=== PATIENT | female | born 1940 | race Caucasian/White ===

== ENCOUNTER 2023-12-23 06:14 | Day surgery (SDC) | payer MEDICARE, BC, SELFPAY ==
--- NOTE | 2023-11-20 09:00 | CM ---
Patient is scheduled for an elective R THR on 12/23/23- she is a same day patient. Spoke with patient prior to surgery. Introduced role of Orthopedic Navigator. Patient reports that she lives alone in a one floor apartment. There are no steps to
enter. She currently functions independently and occasionally uses a rollator. She also has a hurry cane and hip kit. She plans to borrow a rolling walker, raised toilet seat and shower seat. She has had VN services. PCP is Sylvain Fuentes.
Discussed orthopedic program and post surgical plans. Reviewed that she will have VN services initially (medicare.gov website and ratings reviewed) and will then start outpatient PT. Patient selects [facility] (face sheet faxed to [facility] to facilitate
confirmation of benefits) for her home care needs and will go to [facility] for outpatient PT.
Patient is in agreement with plan and states that her son will stay with her at least her for at least the first night home then her sister will be available to provide support.
Patient will complete online education.
Plan: Orthopedic Navigator will remain available to assist with the care of patient and will reassess discharge needs after surgery.
[2023-12-04 10:29] VITALS: BMI 24.9
[2023-12-04 10:53] LABS: Hematocrit 42.8 % (37.0-47.0); Hemoglobin 14.6 g/dL (12.0-16.0); Mean Corp Hgb Conc. 34.1 g/dL (33.0-37.0); Mean Corpuscular Volume 84.9 fL (81.0-99.0); Mean Platelet Volume 10.1 fL (7.4-10.4); Platelet Count 222 10^3/uL (130-400); Red Blood Cell Count 5.04 10^6/uL (4.20-5.40); Red Cell Dist. Width 12.8 % (11.5-14.5); White Blood Cell Count 6.1 10^3/uL (4.8-10.8)
[2023-12-04 12:29] LABS: ALT (SGPT) 27 U/L (0-35); AST (SGOT) 31 U/L (14-36); Albumin 4.3 g/dl (3.5-5.0); Alkaline Phosphatase 80 U/L (38-126); Blood Urea Nitrogen 20 mg/dl (7-17); Calcium 10.1 mg/dl (8.4-10.2); Carbon Dioxide 27 mmol/L (22-30); Chloride 105 mmol/L (98-107); Estimated Creatinine Clearance 40 ml/min; Glucose 95 mg/dl (70-99); Potassium 4.6 mmol/L (3.5-5.1); Sodium 137 mmol/L (135-145); eGFR > 60.00
[2023-12-04 13:21] LABS: Glycohemoglobin (HgbA1c) 5.6 % (4.0-5.6)
[2023-12-04 15:28] VITALS: BMI 24.9
[2023-12-23] VITALS (13 sets, daily range): BP systolic 126–169; BP diastolic 47–89; PULSE 80; O2SAT 99
[2023-12-23] MEDS: NORMOSOL-R 1000 IV (07:15)
[2023-12-23] MEDS: CELEBREX 200 MG PO (07:28)
[2023-12-23] MEDS: TYLENOL 650 MG PO (07:28)
--- NOTE | 2023-12-23 08:31 | CM ---
Patient is here for planned R THR. Met with patient and her son at bedside to review discharge plans. Patient will be returning home today with services through [facility]. On , 12/26, patient will start outpatient PT with [facility] (they will see
her in her apartment initially). Reviewed MD follow up in two weeks and patient has already scheduled her appointment.
Patient has her rolling walker here with her.
PT and [facility] will be kept updated as to progress and discharge plans.
[2023-12-23] MEDS: ANCEF 5 IV (11:59)
== END 2023-12-23 12:20 | disposition home health service (06) ==
LOC: SDS 06:14
PROVIDERS: ATTENDING PHYSICIAN Specialist; FAMILY PHYSICIAN Internal Medicine; OTHER PHYSICIAN Internal Medicine; OTHER PHYSICIAN Physician Assistant
DX: M16.11 Unilateral primary osteoarthritis, right hip (principal)
CPT/HCPCS: 27130; C1776; 36415; 73502; 80053; 83036; 85027; 87070; 97116; 97161; C1713

== ENCOUNTER 2024-09-18 23:06 | Emergency (ER) | payer MEDICARE, BC, SELFPAY ==
[2024-09-18 23:21] VITALS: BP 175/94
[2024-09-19] VITALS (7 sets, daily range): BP systolic 142–184; BP diastolic 61–91; PULSE 76–94; BMI 23.6
--- NOTE | 2024-09-19 01:27 | ED.GENMED ---
History of Present Illness
General
Chief Complaint: Fall
Source: patient
Exam Limitations: none
Time Seen by Provider: 09/19/24 00:38
History of Present Illness
History of Present Illness:
This is a 83 year old female that comes in with c/o fall and syncope. States that there was a silver fish bug in her living room. States that she was beating this but as it just kept jumping and she must have passed out. States that her Cousin
called her around 9:30pm wondering where she was as she normally puts drops in her eyes for her. States that she must have passed out as she doesn't remember what happened. States that she hit the TV stand and broke her glasses. Family states that
she has had indigestion and was belching all the away here. States that she was also repeating herself and would ask them what happened and when they had told her she would then ask the same questions again. Patient Denies any fever, chills, chest
pain, SOB, abd pain, nausea, vomiting, diarrhea, headache, dizziness, urinary burning.
Past History
Past History
ED Past Medical History: HTN, Hypercholesterolemia, Hypothyroidism, Psychiatric (Anxiety) and Other (LBBB, Retinal detachment)
ED Past Surgical History: Gynecological (D&C) and Orthopedic (Right Humerus ORIF, right hip replacement)
Social History
Tobacco: Non-smoker
Alcohol: None
Personal:
Living: alone
Review of Systems
Review of Systems
All Other Systems: ROS reviewed and negative except as documented in HPI and ROS
Constitutional: Reports no symptoms; Denies fever or chills
EENT: Reports no symptoms
Respiratory: Reports no symptoms; Denies cough or trouble breathing
Cardiac: Reports no symptoms; Denies chest pain
ABD/GI: Reports no symptoms; Denies abdominal pain, nausea, vomiting or diarrhea
: Denies dysuria, frequency or urgency
Musculoskeletal: Reports no symptoms
Skin: Reports no symptoms
Neurological: Denies dizzy or headache
Psychiatric: Reports no symptoms
Phy Exam
General Physical Exam
General Presentation: no apparent distress
General age: appears stated age
General Skin: warm and dry
General Habitus: elderly
General Mental: alert
General Hydration: dry mucous membranes
ENT Exam
ENT Exam: TM's normal, pharynx normal and neck supple
Eye Exam
Eye Exam: EOMI
Cardiovascular Exam
Cardiovascular Exam: regular rate/rhythm, no edema and normal peripheral pulses
Pulmonary Exam
Pulmonary Exam: lungs clear, no respiratory distress, no rales, chest non tender, no crackles, no rhonchi, no wheezing and no cough
Gastrointestinal Exam
Gastrointestinal Exam: normal bowel sounds, non tender, soft, no organomegaly, no pulsatile mass and non distended
NIH Stroke Score
Level of Consciousness: 0 - Alert
LOC questions: 0-Answers both correctly
LOC Commands: 0-Performs both correctly
Best Gaze: 0-Normal
Visual Schrader: 0=Normal, no visual loss
Facial palsy: 0=Normal, symmetrical
Motor - Right Arm: 0=No drift 10 seconds
Motor - Left Arm: 0=No drift 10 seconds
Motor - Right Le-No drift 5 seconds
Motor - Left Le-No drift 5 seconds
Limb Ataxia: 0-Absent
Sensation: 0-Normal
Best Language: 0-No aphasia
Dysarthria: 0-Normal
Extinction and Inattention: 0-No abnormality
Total Score:: 0
Musculoskeletal Exam
Musculoskeletal Exam: full ROM, no edema and other (Negative for any cervical neck, spinal or shoulder tenderness. Negative rib tenderness with palpation. Negative for discomfort with flexion of the knee's, inversion or eversion. )
Skin Exam
Skin Exam: normal color, warm/dry, no petechia and other (Contusion noted over the left eye and around the lateral aspect of the eye with small superficial abrasion noted just above the eye brow. )
Psychiatric Exam
Psychiatric Exam: normal mood/affect
Course
Orders/Labs/Results
Orders:
Orders
09/19/24 00:06
CT Head W/o Iv Contrast Urgent
Comment: no blood thinners
Reason For Exam: fell, struck left rastafari, + LOC
09/19/24 01:07
Electrocardiogram (*1) Urgent
Reason for Study: Syncope
EKG- Treatment ONCE
Orthostatic VS- Treatment ONCE
0.9% Sodium Chloride 500 ml [Nss] 500 ml IV BOLUS
09/19/24 01:32
Complete Blood Count/With Diff Urgent
Comprehensive Metabolic Panel Urgent
Troponin I Urgent
09/19/24 02:28
CT Cervical Spine W/o Iv Contr Urgent
Comment:
Reason For Exam: Fall, Subdural hematom
09/19/24 03:03
Urinalysis Reflex To Culture Urgent
Date Specimen was Collected: 09/19/24
Time Specimen was Collected: 02:29
Urine Microscopic Reflex Cult Urgent
Urine Culture Urgent
CARLOS Source: U
Specimen Description:
Date Specimen was Collected: 09/19/24
Time Specimen was Collected: 02:29
Abnormal Lab Results
09/19/24 09/19/24
01:32 03:03
WBC 11.1 H 10^3/uL
(4.8-10.8)
Abs Immat Gran (auto) 0.1 H 10^3/uL
(0-0.05)
Absolute Neuts (auto) 9.2 H 10^3/uL
(1.4-6.5)
Neutrophils % 82.5 H %
(42.2-75.2)
Lymphocytes % 11.2 L %
(20.5-51.1)
BUN 20 H mg/dl
(7-17)
Glucose 145 H mg/dl
(70-99)
Calcium 10.4 H mg/dl
(8.4-10.2)
AST 37 H U/L
(14-36)
Leukocyte Esterase Rfl 1+ A
(Negative)
09/19/24 01:32
09/19/24 01:32
WBC very slighty elevated. Dehydration. Glucose nonfasting. Calcium slightly elevated. Troponin <0.012
Vital Signs
Initial and Last Documented VS:
Initial Vital Signs
Temp Pulse Resp BP Pulse Ox
98.5 F 85 16 175/94 97
09/18/24 23:21 09/18/24 23:21 09/18/24 23:21 09/18/24 23:21 09/18/24 23:21
Last Documented Vital Signs
Temp Pulse Resp BP Pulse Ox
98.5 F 80 16 146/74 96
09/18/24 23:21 09/19/24 02:28 09/18/24 23:21 09/19/24 03:02 09/19/24 03:02
MDM/Problems Addressed
Differential Diagnosis Includes:
Syncope, Contusion. Coronary event,
MDM/Problems Addressed:
This is a 83 year old female that comes in with c/o fall. States that she was trying to kill a bug and she must have passed out as she hit the TV stand and broke her glasses. States that she doesn't remember this.
Will check labs. CT head, Urine. Orthostatic, and given IV fluids
Spoke with Dr. Stephanie Edwards for Neurosurgery at [facility]. Suggested that we transfer patient to them. Spoke with Physician there and awaiting to see if they have a bed.
Back into see patient and Son. Explained that the CT shows that she has a subdural hematoma. Will need to transfer patient to [facility]. Patient has signed consent for Transfer.
Patient will be transfered to the ER at [facility]. Dr. Erwin is the excepting physician.
Chronic conditions affecting care:
NA
Acute Exacerbation and/or Progression of Chronic Illness:
NA
*Radiology
Radiology exam reviewed: radiology read reviewed (CT head Night hawk-Subcutaneous edema over the left forrhad/periorbital region. There is a right sudural hematoma along the frontoparietal lobe Measuring 4mm in thickness. No significant mass effect.
CT cervical spine- NO fractures. Mild retrolisthesis C4-5. This probably related to degenerative ) and other (CT cont- changes, assuming no signs and symptoms of ligamentous instability. Paraspinous soft tissues are unremarkable. )
*Pulse Oximetry
Patient hypoxic: no
*EKG
Interpreted by ED Provider?: Yes
Heart Rate: 76
Rate: normal
Rhythm: sinus
[place]: left axis deviation
Interval: normal interval
QRS Pattern: left bundle branch block
Ischemia: no ischemia
*Critical Care Note
Total Time (30-74mins, 75-104mins- exclusive of procedures): Not Applicable
ED Attending Note
-
Portions of this chart may have been created with voice recognition software.� Occasional wrong word or��sound alike� substitutions may have occurred due to the inherent limitations of voice recognition software.
Discharge Plan
Departure
Patient Disposition: [facility]
Date of Disposition: 09/19/24
Time of Disposition: 03:16
Patient with high blood pressure during this ER visit?: Yes
Condition: Good
Covid-19: Not Applicable
Discharge Problem:
Acute subdural hematoma
Prescriptions:
No Action
pravastatin 40 mg Tablet
40 mg PO NOON
lorazepam 0.5 mg Tablet
0.5 mg PO HS
levothyroxine 50 mcg Tablet
50 mcg PO DAILY
ergocalciferol (vitamin D2) [Vitamin D2] 1,250 mcg (50,000 unit) Capsule
1,250 mcg PO DUBOIS
fluticasone propionate 50 mcg/actuation [place],Suspension
1 spray INTRANASAL DAILY PRN (Reason: ALLERGIES)
Systane (PF) 0.4-0.3 % Drop[place]rette
1 drp OPHTHALMIC (EYE) BID
hydrocodone-acetaminophen 5-325 mg tablet
1 - 2 tab PO Q6H PRN (Reason: moderate-severe pain) Qty: 30 0RF
Rx Instructions:
1 tab for moderate pain, 2 if severe.
Dx total joint.
celecoxib [Celebrex] 200 mg capsule
200 mg PO DAILY Qty: 14 0RF
Rx Instructions:
Take with food.
DO NOT take within 2 hours of Aspirin post-surgery.
dexamethasone 4 mg tablet
4 mg PO BID Qty: 7 0RF
Rx Instructions:
Start night of discharge and continue twice a day for 3 days post-surgery.
ondansetron HCl 4 mg tablet
4 mg PO Q6H PRN (Reason: nausea and vomiting) Qty: 30 0RF
famotidine [Pepcid] 20 mg tablet
20 mg PO HS Qty: 30 0RF
Rx Instructions:
Take nightly while on Celebrex and Aspirin to prevent GI upset.
mupirocin 2 % ointment
1 applic intranasal BID Qty: 1 0RF
Patient Comments:
Patient administered this medication today 12/23/23 @ 05:00. Patient started administering this medication on 12/21/23 in the morning.
acetaminophen 325 mg capsule
650 mg PO Q4H PRN (Reason: mild pain) Qty: 60 0RF
Rx Instructions:
DO NOT exceed >4000 mg daily while on Wing (Hydrocodone-Acetaminophen).
1 Wing tab = 325 mg of Tylenol.
aspirin 325 mg tablet
325 mg PO DAILY Qty: 30 0RF
Rx Instructions:
Take daily x4 weeks for blood clot prevention.
docusate sodium [Colace] 100 mg capsule
100 mg PO BID Qty: 30 0RF
sennosides [senna] 8.6 mg tablet
17.2 mg PO BID Qty: 30 0RF
lorazepam 0.5 mg Tablet
0.5 mg PO DAILYPRN PRN (Reason: ANXIETY) Qty: 0 0RF
Rx Instructions:
Caution with Hydrocodone - can cause drowsiness.
Use extra dose sparingly.
irbesartan 150 mg Tablet
150 mg PO HS Qty: 0 0RF
Rx Instructions:
HOLD IF systolic blood pressure <130 while on Hydrocodone-Acetaminophen.
Referrals:
Sylvain Fuentes MD [Family Provider] -
Hospital Transfer
Other hospital: [facility]
I certify that the patient requires transfer: Yes
Discussed case with accepting physician: DR. Erwin
Reason for transfer: higher level of care and specialties available
Interventions
Interventions:
*Risk Screen - Suicide Last Done: 09/18/24 23:08
*General Assessment Last Done: 09/18/24 23:11
*Neglect/Abuse Screening Last Done: 09/18/24 23:12
*ED COVID-19 Vaccine History Last Done: 09/18/24 23:13
ED-Musculoskeletal Assessment Last Done: 09/19/24 03:14
ED- Neurological Assessment Last Done: 09/19/24 03:14
ED-Skin Assessment Last Done: 09/19/24 03:14
Discharge Date and Time
Print Language: UKRAINIAN
[2024-09-19] MEDS: NSS 500 IV (01:40)
[2024-09-19 01:43] LABS: % Basophils 0.9 % (0-2); % Eosinophils 0.7 % (0-6); % Immature Granulocytes 0.5 % (0-0.5); % Lymphocytes 11.2 % (20.5-51.1); % Monocytes 4.2 % (1.7-9.3); % Neutrophils 82.5 % (42.2-75.2); Absolute Basophils 0.1 10^3/uL (0-0.2); Absolute Eosinophils 0.1 10^3/uL (0-0.7); Absolute Immature Granulocytes 0.1 10^3/uL (0-0.05); Absolute Lymphocytes 1.2 10^3/uL (1.2-3.4); Absolute Monocytes 0.5 10^3/uL (0.1-0.6); Absolute Neutrophils 9.2 10^3/uL (1.4-6.5); Hematocrit 43.2 % (37.0-47.0); Hemoglobin 14.9 g/dL (12.0-16.0); Mean Corp Hgb Conc. 34.5 g/dL (33.0-37.0); Mean Corpuscular Hgb 28.1 pg (27.0-31.0); Mean Corpuscular Volume 81.5 fL (81.0-99.0); Mean Platelet Volume 9.4 fL (7.4-10.4); Nucleated Red Blood Cells % 0 %; Platelet Count 219 10^3/uL (130-400); Red Cell Dist. Width 12.8 % (11.5-14.5); White Blood Cell Count 11.1 10^3/uL (4.8-10.8)
[2024-09-19 01:58] LABS: ALT (SGPT) 33 U/L (0-35); AST (SGOT) 37 U/L (14-36); Albumin 4.6 g/dl (3.5-5.0); Alkaline Phosphatase 109 U/L (38-126); Blood Urea Nitrogen 20 mg/dl (7-17); Calcium 10.4 mg/dl (8.4-10.2); Carbon Dioxide 25 mmol/L (22-30); Chloride 105 mmol/L (98-107); Glucose 145 mg/dl (70-99); Sodium 145 mmol/L (135-145); Total Bilirubin 0.5 mg/dl (0.2-1.3); Total Protein 7.4 g/dl (6.3-8.2); eGFR > 60.00
[2024-09-19 02:10] LABS: Troponin I < 0.012 ng/ml
[2024-09-19 03:20] LABS: Urine Albumin Negative (Neg - Trace); Urine Bilirubin Negative (Negative); Urine Character Clear (Clear); Urine Color Straw; Urine Glucose Negative (Negative); Urine Ketone Negative (Negative); Urine Leukocyte 1+ (Negative); Urine Nitrite Negative (Negative); Urine Occult Blood Negative (Negative); Urine Urobilinogen Negative (Neg - 1+)
[2024-09-19 03:40] LABS: Urine Red Blood Cell None Seen /HPF (0-2)
== END 2024-09-19 05:09 | disposition short-term general hospital (02) ==
LOC: EMR 23:06
PROVIDERS: Clinical Nurse Specialist Family Health; EMERGENCY PHYSICIAN Emergency Medicine; FAMILY PHYSICIAN Internal Medicine
DX: R55 Syncope and collapse (principal); W19.XXXA Unspecified fall, initial encounter; I10 Essential (primary) hypertension; E78.00 Pure hypercholesterolemia, unspecified; E03.9 Hypothyroidism, unspecified; F41.9 Anxiety disorder, unspecified; I44.7 Left bundle-branch block, unspecified; E86.0 Dehydration; Z96.641 Presence of right artificial hip joint
CPT/HCPCS: 99285; 96360; 70450; 72125; 80053; 81003; 81015; 84484; 85025; 87086; 93005

== ENCOUNTER → 2024-09-23 13:51 | Outpatient (REF) | payer MEDICARE, BC, SELFPAY | LOC: RAD 13:51 | PROVIDERS: ATTENDING PHYSICIAN Neurological Surgery; FAMILY PHYSICIAN Internal Medicine | DX: S06.5XAA Traumatic subdural hemorrhage with loss of consciousness status unknown, initial encounter (principal); S06.9XAA Unspecified intracranial injury with loss of consciousness status unknown, initial encounter | CPT/HCPCS: 70450 ==

== ENCOUNTER → 2024-10-27 09:03 | Outpatient (REF) | payer MEDICARE, BC, SELFPAY | LOC: RAD 09:03 | PROVIDERS: ATTENDING PHYSICIAN Physician Assistant Medical; FAMILY PHYSICIAN Internal Medicine | DX: S06.5XAA Traumatic subdural hemorrhage with loss of consciousness status unknown, initial encounter (principal) | CPT/HCPCS: 70450 ==

== ENCOUNTER → 2024-11-04 15:30 | Outpatient (REF) | payer MEDICARE, BC, SELFPAY | LOC: HWRCS 15:30 | PROVIDERS: ATTENDING PHYSICIAN Internal Medicine Cardiovascular Disease; FAMILY PHYSICIAN Internal Medicine | DX: R55 Syncope and collapse (principal) | CPT/HCPCS: 93306 ==